=== PATIENT | female | born 1935 | race Two or more races ===

== ENCOUNTER 2018-02-22 15:18 | Inpatient (IN) | payer MEDICARE, MEDICAID ==
[~2018-02-22] VITALS: Ht 154.9 cm; Wt 58.5 kg
[~2018-02-22 15:18] MED LIST: ATOR20TA PO; BENA20TA9 PO; DEXT1CAP3 PO; DOCU-141 PO; METF500T PO; [UNRECOGNIZED DRUG - REMARK] SQ
--- NOTE | 2018-02-22 15:18 | NUR ---
BB PRIVATE EMS FROM [facility] FOR RT KNEE PAIN,RT LEG PAIN, PT WAS FOUND KNEELING DOWN ON HER BEDSIDE. TYLENOL 500MG GIVEN AT 1345. A/OX3. NAD VSS RR EVEN AND UNLABORED. PENDING ER MD SAUCEDA
[2018-02-22 16:31] LABS: BASOPHILS # (AUTO) 0.4 /CMM (0.0-0.2); BASOPHILS % (AUTO) 4.6 % (0.0-2.0); EOSINOPHILS % (AUTO) 0.6 % (0.0-6.0); HEMATOCRIT 34 % (33-45); HEMOGLOBIN 11.8 g/dL (11.5-14.8); LYMPHOCYTES # (AUTO) 2.1 /CMM (0.8-4.8); LYMPHOCYTES % (AUTO) 22.7 % (20.0-44.0); MEAN CORPUSCULAR HEMOGLOBIN 33 PG (26.0-33.0); MEAN CORPUSCULAR HGB CONC 34 g/dl (31.0-36.0); MEAN CORPUSCULAR VOLUME 95 fL (82-100); MONOCYTES # (AUTO) 0.7 /CMM (0.1-1.30); MONOCYTES % (AUTO) 7.7 % (2.0-12.0); NEUTROPHILS # (AUTO) 5.8 /CMM (1.8-8.9); NEUTROPHILS % (AUTO) 64.4 % (43.0-81.0); PLATELET COUNT (AUTO) 211 /CMM (150-450); RDW COEFFICIENT OF VARIATION 13.7 (11.5-15.0); WHITE BLOOD COUNT (AUTO) 9.1 K/uL (4.3-11.0)
[2018-02-22 16:40] LABS: CALCIUM, SERUM 8.5 mg/dL (8.5-10.1); CARBON DIOXIDE 27 mmol/L (21-32); CHLORIDE 104 mmol/L (98-107); CREATININE 1.4 mg/dL (0.6-1.3); GLUCOSE 272 mg/dL (74-106); POTASSIUM 4.9 mmol/L (3.5-5.1); SODIUM SERUM 138 mmol/L (136-145); UREA NITROGEN, BLOOD 39 mg/dL (7-18)
[2018-02-22 16:43] LABS: INR 0.95 (0.85-1.15)
--- NOTE | 2018-02-22 17:57 | NUR ---
CALLED CHARLINE SHAFFER, DIRECTOR BUSINESS INTEGRATION WAS PAGED.
[2018-02-22] MEDS ORDERED: MAG HYDROX/AL HYDROX/SIMETH 30 ML UDC PO PRN (18:30)
[2018-02-22] MEDS ORDERED: ONDANSETRON HCL/PF 4 MG/2 ML VIAL IVP PRN (18:30)
[2018-02-22] MEDS ORDERED: MORPHINE SULFATE INJ 2 MG/ML DISP.SYRIN IV PRN (18:30)
[2018-02-22] MEDS ORDERED: ACETAMINOPHEN 325 MG TABLET PO PRN (18:30)
[2018-02-22] MEDS ORDERED: MAGNESIUM HYDROXIDE 30 ML UDC PO PRN (18:30)
[2018-02-22] MEDS ORDERED: TEMAZEPAM 15 MG CAPSULE PO PRN (18:30)
[2018-02-22] MEDS ORDERED: METF500T6 PO (18:35)
[2018-02-22] MEDS ORDERED: INSU100I26 SQ (18:35)
[2018-02-22] MEDS ORDERED: MEMA14CA PO (18:35)
[2018-02-22] MEDS ORDERED: CRAN425C6 PO (18:35)
[2018-02-22] MEDS ORDERED: INSU100V11 SQ (18:35)
[2018-02-22] MEDS ORDERED: CALC-883 PO (18:35)
[2018-02-22] MEDS ORDERED: DIVA125C5 PO (18:35)
[2018-02-22] MEDS ORDERED: ACET-868 PO (18:35)
[2018-02-22] MEDS ORDERED: FERR325T23 PO (18:35)
[2018-02-22] MEDS ORDERED: DEXTROSE 50%-WATER 50 ML DISP.SYRIN IV PRN (19:00)
--- NOTE | 2018-02-22 21:36 | NUR ---
REPORT GIVEN TO HANDY SINGLETON FOR CONTINUATION OF CARE.
[2018-02-22 22:00] VITALS: BP 144/75
--- NOTE | 2018-02-22 22:10 | NUR ---
PT TRANSFERRED TO VIA [facility]
--- NOTE | 2018-02-22 22:30 | NUR ---
MS RN - ADMISSION NOTES Report received from GIGI Jo RN. Patient received via gurney from ER @2210 for right medial distal femur fracture [facility]. Alert and oriented x1 to self only. [place] language preferred. Rock Splitter present at bedside. Unable to remember what happened. No complaints of pain. Not in any apparent distress. Provider aware transfer to med-surg. Orders received. Skin body assessment done. MRSA Swab done in ER. Bonner in place with slightly cloudy, yellow urine draining. Will attempt to insert IV. Afebrile. Safety measures in place. Bed in lowest position with bed alarm on and call light within reach. Will continue to monitor and assess patient
[2018-02-22] MEDS: BLOOD SUGAR DIAGNOSTIC 1 EACH STRIP IN SCH (23:31)
--- NOTE | 2018-02-23 00:02 | NUR ---
MS RN - IV NOTES IV inserted on left forearm 20g: patent and intact with orders of LR 1000ml @75ml/hr
[2018-02-23] MEDS: IV LR 1000 ML 1,000 ML IV PRN ×2 (00:03→15:25)
--- NOTE | 2018-02-23 06:14 | NUR ---
MS RN CLOSING NOTES Patient remained in bed, intermittently sleeping, easily aroused. No complaints of pain at this moment. Not in any type of distress. IV on left forearm #20g: patent and intact with LR @75ml/hr running, tolerating well. NPO since admission. Bonner cath in place with slightly cloudy/yellow urine draining. 300cc output collected. All needs provided and met. Safety measures in place. Bed in lowest position with bed alarm on and call light within reach. Will endorse to oncoming shift nurse.
[2018-02-23 06:57] LABS: BASOPHILS % (AUTO) 0.6 % (0.0-2.0); EOSINOPHILS % (AUTO) 0.9 % (0.0-6.0); HEMATOCRIT 32 % (33-45); HEMOGLOBIN 11.2 g/dL (11.5-14.8); LYMPHOCYTES # (AUTO) 2.2 /CMM (0.8-4.8); LYMPHOCYTES % (AUTO) 28.5 % (20.0-44.0); MEAN CORPUSCULAR HEMOGLOBIN 33 PG (26.0-33.0); MEAN CORPUSCULAR HGB CONC 35 g/dl (31.0-36.0); MEAN CORPUSCULAR VOLUME 95 fL (82-100); MONOCYTES # (AUTO) 0.8 /CMM (0.1-1.30); MONOCYTES % (AUTO) 9.8 % (2.0-12.0); NEUTROPHILS # (AUTO) 4.7 /CMM (1.8-8.9); NEUTROPHILS % (AUTO) 60.2 % (43.0-81.0); PLATELET COUNT (AUTO) 195 /CMM (150-450); RDW COEFFICIENT OF VARIATION 13.5 (11.5-15.0); RED BLOOD CELL COUNT(AUTO) 3.37 MIL/uL (4.0-5.2); WHITE BLOOD COUNT (AUTO) 7.8 K/uL (4.3-11.0)
--- NOTE | 2018-02-23 07:10 | NUR ---
MS RN NOTES PATIENT IN BED EYES CLOSED, AROUSABLE. RESPOND TO VERBAL AND TACTILE STIMULI. NO ACUTE DISTRESS NOTED, BREATHING UNLABORED. IV ACCESS PATENT AND INTACT, NO REDNESS OR SWELLING NOTED. SAFETY MEASURES IN PLACE. CALL LIGHT WITHIN REACH. WILL CONTINUE TO MONITOR ACCORDINGLY.
[2018-02-23] MEDS ORDERED: PANTOPRAZOLE 40 MG VIAL IV SCH (07:30)
[2018-02-23 08:00] VITALS: BP 133/65
[2018-02-23 08:14] LABS: CALCIUM, SERUM 8.1 mg/dL (8.5-10.1); CARBON DIOXIDE 31 mmol/L (21-32); CHLORIDE 108 mmol/L (98-107); CREATININE 1.1 mg/dL (0.6-1.3); GLUCOSE 83 mg/dL (74-106); MAGNESIUM 1.7 mg/dL (1.8-2.4); PHOSPHORUS 3.8 mg/dL (2.5-4.9); POTASSIUM 4.8 mmol/L (3.5-5.1); SODIUM SERUM 144 mmol/L (136-145); UREA NITROGEN, BLOOD 29 mg/dL (7-18)
[2018-02-23 08:22] LABS: CHOLESTEROL 129 mg/dL (<200); HDL CHOLESTEROL 51 mg/dL (40-60); LDL 65 mg/dL (0-99); THYROID STIMULATING HORMONE 0.993 uIU/mL (0.358-3.74); TRIGLYCERIDES 86 mg/dL (30-150)
[2018-02-23] MEDS: BLOOD SUGAR DIAGNOSTIC 1 EACH STRIP IN SCH ×4 (08:53→21:50)
[2018-02-23] MEDS ORDERED: ENOXAPARIN SODIUM 40 MG/0.4 ML DISP.SYRIN SQ SCH (09:00)
[2018-02-23] MEDS: Magnesium 1GM/D5W 100ML PREMIX 100 ML IV SCH ×2 (09:28→10:33)
[2018-02-23] MEDS ORDERED: MORPHINE SULFATE INJ 4 MG/ML DISP.SYRIN IV PRN (09:57)
[2018-02-23] MEDS: PANTOPRAZOLE 40 MG TABLET.DR PO SCH (09:59)
[2018-02-23] MEDS: ENOXAPARIN SODIUM 30 MG/0.3 ML DISP.SYRIN SQ SCH (11:30)
[2018-02-23] MEDS: LOSARTAN POTASSIUM 50 MG TABLET PO SCH (11:30)
--- NOTE | 2018-02-23 11:31 | NUR ---
MS RN NOTES SEEN AND EVALUATED BY SALINAS PENA (ORTHO), NO SX WILL BE DONE ON RIGHT FEMUR, WITH NEW ORDERS MADE. NOTED AND CARRIED OUT. DISCONTINUED NPO, DIET ORDERED, DUE MEDICATIONS GIVEN.
--- NOTE | 2018-02-23 15:15 | NUR ---
MS RN NOTES SEEN AND EVALUATED BY MIRIAM DICKERSON WITH NEW ORDERS MADE. NOTED AND CARRIED OUT.
[2018-02-23 16:00] VITALS: BP 120/79
[2018-02-23] MEDS: INSULIN REGULAR, HUMAN 100 UNIT/ML 3 ML VIAL SQ PRN ×2 (17:35→21:55)
--- NOTE | 2018-02-23 19:00 | NUR ---
MS RN NOTES PATIENT EYES CLOSED, AROUSABLE, RESPONSIVE TO VERBAL AND TACTILE STIMULI. NO ACUTE DISTRESS NOTED, BREATHING UNLABORED. NO SOB NOTED. IV ACCESS PATENT AND INTACT, NO REDNESS OR SWELLING NOTED. CROWE CATHETER INTACT, DRAINING WELL. RIGHT LEG IMMOBILIZER IN PLACE. NEEDS ATTENDED AND ANTICIPATED. KEPT CLEAN AND DRY AND COMFORTABLE. DUE MEDICATIONS GIVEN, NO ASE NOTED. SAFETY MEASURES IN PLACE. CALL LIGHT WITHIN REACH. ENDORSED TO NIGHT NURSE FOR CONTINUITY OF CARE.
[2018-02-23 19:20] LABS: APPEARANCE,URINE CLOUDY (CLEAR); BILIRUBIN,URINE NEGATIVE (NEGATIVE); BLOOD, URINE TRACE Ery/uL (NEGATIVE); COLOR,URINE YELLOW (YELLOW); KETONES,URINE NEGATIVE (NEGATIVE); LEUKOCYTE ESTERASE ,URINE 2+ (NEGATIVE); NITRITE, URINE POSITIVE (NEGATIVE); PH,URINE 8.5 (5.0-8.0); PROTEIN,URINE TRACE mg/dl (NEGATIVE); UGLUCOSE TRACE mg/dL (NEGATIVE)
[2018-02-23 19:26] LABS: BACTERIA,URINE Many /HPF (None Seen); RBC,URINE 0-2 /HPF (0-2); SQUAMOUS EPITHELIAL CELL,UR Few /HPF (None Seen); WBC,URINE 21-50 /HPF (0-3)
[2018-02-23 20:00] VITALS: BP 104/71
--- NOTE | 2018-02-23 20:12 | NUR ---
MS REINSURANCE ACCOUNTANT INITIAL NOTES SEEN PT IN BED AFTER GOT REPORT FROM AM NURSE SHE'S AWAKE AND ALERT [place] SPEAKING WITH LR INFUSING AT THIS TIME AT 75ML/HR ON HER LEFT FOREARM. BREATHING EVEN AND NON-LABORED , FEBRILE AT THIS TIME WITH TEMP 101. NO SIGNS OF ANY DISCOMFORT NOTED. CROWE TO GRAVITY . KEPT HER WARM AND COMFORTABLE AT ALL TIMES. BED ALARM SET FOR PT SAFETY. ON SEMI FOWLERS POSITION WITH SIDE RAILS X3 UP . WILL CONTINUE MONITORING. PLACE CALL LIGHT AT REACH.
[2018-02-24] VITALS: BP 134/93
[2018-02-24] MEDS: IV LR 1000 ML 1,000 ML IV PRN ×2 (05:05→19:42)
[2018-02-24] MEDS: BLOOD SUGAR DIAGNOSTIC 1 EACH STRIP IN SCH ×4 (06:05→21:38)
[2018-02-24] MEDS: INSULIN REGULAR, HUMAN 100 UNIT/ML 3 ML VIAL SQ PRN ×4 (06:07→21:42)
--- NOTE | 2018-02-24 06:08 | NUR ---
ms rider ticket worker notes blood sugar 141, 2 units of insulin given umm SQ ordered. no signs of hypo /hyper glycemia noted. pt still on ivf of LR at 75 ml/hr. will continue monitoring.
[2018-02-24 06:25] LABS: BASOPHILS % (AUTO) 0.3 % (0.0-2.0); EOSINOPHILS % (AUTO) 1.3 % (0.0-6.0); HEMATOCRIT 32 % (33-45); HEMOGLOBIN 10.6 g/dL (11.5-14.8); LYMPHOCYTES # (AUTO) 1.9 /CMM (0.8-4.8); LYMPHOCYTES % (AUTO) 26.4 % (20.0-44.0); MEAN CORPUSCULAR HEMOGLOBIN 33 PG (26.0-33.0); MEAN CORPUSCULAR HGB CONC 34 g/dl (31.0-36.0); MEAN CORPUSCULAR VOLUME 98 fL (82-100); MONOCYTES # (AUTO) 0.8 /CMM (0.1-1.30); MONOCYTES % (AUTO) 11.3 % (2.0-12.0); NEUTROPHILS # (AUTO) 4.4 /CMM (1.8-8.9); NEUTROPHILS % (AUTO) 60.7 % (43.0-81.0); PLATELET COUNT (AUTO) 210 /CMM (150-450); RDW COEFFICIENT OF VARIATION 14.1 (11.5-15.0); RED BLOOD CELL COUNT(AUTO) 3.23 MIL/uL (4.0-5.2); WHITE BLOOD COUNT (AUTO) 7.2 K/uL (4.3-11.0)
[2018-02-24 06:45] LABS: ALANINE AMINOTRANSFERASE 12 U/L (12-78); ALKALINE PHOSPHATASE 40 U/L (46-116); ASPARTATE AMINOTRANSFERASE 12 U/L (15-37); BILIRUBIN,TOTAL 0.4 mg/dL (0.2-1.0); CALCIUM, SERUM 7.9 mg/dL (8.5-10.1); CARBON DIOXIDE 31 mmol/L (21-32); CHLORIDE 103 mmol/L (98-107); CREATININE 1.1 mg/dL (0.6-1.3); GLUCOSE 148 mg/dL (74-106); MAGNESIUM 1.9 mg/dL (1.8-2.4); PHOSPHORUS 3.2 mg/dL (2.5-4.9); POTASSIUM 4.5 mmol/L (3.5-5.1); SODIUM SERUM 137 mmol/L (136-145); TOTAL PROTEIN, SERUM 5.7 g/dL (6.4-8.2); UREA NITROGEN, BLOOD 24 mg/dL (7-18)
--- NOTE | 2018-02-24 07:10 | NUR ---
MS RN NOTES PATIENT IN BED EYES CLOSED, AROUSABLE. RESPOND TO VERBAL AND TACTILE STIMULI. NO ACUTE DISTRESS NOTED, BREATHING UNLABORED. IV ACCESS PATENT AND INTACT, NO REDNESS OR SWELLING NOTED. CROWE CATHETER INTACT, DRAINING YELLOW URINE. SAFETY MEASURES IN PLACE. CALL LIGHT WITHIN REACH. WILL CONTINUE TO MONITOR ACCORDINGLY.
--- NOTE | 2018-02-24 07:15 | NUR ---
MS TELECINE OPERATOR CLOSING NOTES PT SLEEPING WITHOUT ANY ACUTE DISTRESS NOTED. BREATHING EVEN AND NON-LABORED,. BLOOD SUGAR CHECKED DONE 141, 2 UNITS OF INSULIN GIVEN KATARZYNA SQ ORDERED. MORNING CARE DONE. STABLE KATARZYNA THE NIGHT AND SLEPT WELL,. KEPT HER WARM AND COMFORTABLE AT ALL TIMES. IVF LR AT 75ML.HR INFUSING AT THIS TIME. PLACE CALL LIGHT AT REACH. ENDORSE TO AM NURSE FOR CONTINUITY OF CARE.
[2018-02-24 08:00] VITALS: BP 133/69
[2018-02-24] MEDS: LOSARTAN POTASSIUM 50 MG TABLET PO SCH (09:24)
[2018-02-24] MEDS: PANTOPRAZOLE 40 MG TABLET.DR PO SCH (09:24)
[2018-02-24] MEDS: ENOXAPARIN SODIUM 30 MG/0.3 ML DISP.SYRIN SQ SCH (09:25)
--- NOTE | 2018-02-24 11:20 | NUR ---
MS RN NOTES SEEN AND EVALUATED BY DR KAMLA SHEPARD WITH NEW ORDERS MADE, NOTED AND CARRIED OUT.
[2018-02-24] MEDS: SOD FERRIC GLUC 125 MG in IV NS 0.9% 100 ML IV SCH (14:26)
--- NOTE | 2018-02-24 18:39 | NUR ---
MS RN NOTES PATIENT IN BED ALERT ORIENTED X 1. VERBALLY RESPONSIVE. HOB ELEVATED. NO ACUTE DISTRESS NOTED, BREATHING UNLABORED. DENIED ANY PAIN, NO FACIAL GRIMACING NOTED. IV ACCESS PATENT AND INTACT, NO REDNESS OR SWELLING NOTED. CROWE CATHETER INTACT, DRAINING YELLOW URINE. NEEDS ATTENDED AND ANTICIPATED. DUE MEDICATIONS GIVEN, NO ASE NOTED. SAFETY MEASURES IN PLACE. CALL LIGHT WITHIN REACH. WILL CONTINUE TO MONITOR ACCORDINGLY. WILL ENDORSE TO NIGHT NURSE FOR CONTINUITY OF CARE.
[2018-02-24 20:00] VITALS: BP 115/65
--- NOTE | 2018-02-24 20:00 | NUR ---
MS CHRIS INITIAL NOTES RECEIVED REPORT FROM AM NURSE WHILE CHECKING THE PT AT THE SAME TIME. SHE'S AWAKE AND ALERT WATCHING TV AT THIS TIME. WITH IVF OF LR AT 75ML/HR INFUSING AT THIS TIME ON HER LEFT FOREARM. NO REDNESS NOTED. RE-ORIENTED THE PT HOW TO USED THE CALL LIGHT SYSTEM. CROWE TO GRAVITY WITH CLEAR YELLOW OUTPUT NOTED. NO SIGNS OF ANY ACUTE DISTRESS NOTED. KEPT HER WARM AND COMFORTABLE AT ALL TIMES. PLACE CALL LIGHT AT REACH. BED ALARM SET FOR PT SAFETY. WILL CONTINUE MONITORING.
[2018-02-24 20:17] VITALS: BP 115/65
--- NOTE | 2018-02-24 21:45 | NUR ---
MS PRESCHOOL ADVISER NOTES BLOOD SUGAR CHECKED DONE 257, 6 UNITS OF INSULIN GIVEN KATARZYNA SQ ORDERED. SNACKS ALSO SERVED. NO SIGNS OF HYPER GLYCEMIA NOTED. WILL CONTINUE MONITORING.
[2018-02-25] MEDS: BLOOD SUGAR DIAGNOSTIC 1 EACH STRIP IN SCH ×2 (06:21→12:07)
[2018-02-25] MEDS: INSULIN REGULAR, HUMAN 100 UNIT/ML 3 ML VIAL SQ PRN ×2 (06:25→12:09)
--- NOTE | 2018-02-25 07:00 | NUR ---
GEAR GENERATOR SET UP OPERATOR/CLOSING NOTES ' PATIENT BACK TO SLEEP AFTER MORNING CARE DONE WELL SKIN CARE. SLEPT WELL AND STABLE KATARZYNA THE NIGHT. BLOOD SUGAR CHECKED DONE 157 2 UNITS OF INSULIN GIVEN KATARZYNA SQ ORDERED. NO SIGNS OF HYPO/HYPER GLYCEMIA NOTED. STILL ON IVF LR AT 75ML/HR ORDERED. CROWE DRAINING WELL . KEPT HER WARM AND COMFORTABLE AT ALL TIMES. BED ALAR SET FOR PT SAFETY. PLACE CALL LIGHT AT REACH. WILL CONTINUE MONITORING. ENDORSE TO AM NURSE FOR CONTINUITY OF CARE.
--- NOTE | 2018-02-25 07:05 | NUR ---
MS RN NOTES PATIENT IN BED EYES CLOSED, AROUSALBLE , RESPOND TO VERBAL AND TACTILE STIMULI. NO ACUTE DISTRESS NOTED. BREATHING UNLABORED. CROWE CATHETER INTACT DRAINING YELLOW URINE. RIGHT LEG IMMOBILIZER IN PLACE. NO SOB NOTED. DENIED ANY PAIN. IV ACCESS PATENT AND INTACT, NO REDNESS OR SWELLING NOTED. HOB ELEVATED. SAFETY MEASURES IN PLACE. CALL LIGHT WITHIN REACH. WILL CONTINUE TO MONITOR ACCORDINGLY.
[2018-02-25 07:12] LABS: BASOPHILS % (AUTO) 0.3 % (0.0-2.0); EOSINOPHILS % (AUTO) 1.2 % (0.0-6.0); HEMATOCRIT 31 % (33-45); HEMOGLOBIN 10.4 g/dL (11.5-14.8); LYMPHOCYTES # (AUTO) 1.5 /CMM (0.8-4.8); LYMPHOCYTES % (AUTO) 19.6 % (20.0-44.0); MEAN CORPUSCULAR HEMOGLOBIN 33 PG (26.0-33.0); MEAN CORPUSCULAR HGB CONC 34 g/dl (31.0-36.0); MEAN CORPUSCULAR VOLUME 97 fL (82-100); MONOCYTES # (AUTO) 0.8 /CMM (0.1-1.30); MONOCYTES % (AUTO) 10.7 % (2.0-12.0); NEUTROPHILS # (AUTO) 5.1 /CMM (1.8-8.9); NEUTROPHILS % (AUTO) 68.2 % (43.0-81.0); PLATELET COUNT (AUTO) 227 /CMM (150-450); RDW COEFFICIENT OF VARIATION 14.2 (11.5-15.0); RED BLOOD CELL COUNT(AUTO) 3.17 MIL/uL (4.0-5.2); WHITE BLOOD COUNT (AUTO) 7.6 K/uL (4.3-11.0)
[2018-02-25 07:22] LABS: CARBON DIOXIDE 28 mmol/L (21-32); CHLORIDE 103 mmol/L (98-107); CREATININE 0.9 mg/dL (0.6-1.3); GLUCOSE 167 mg/dL (74-106); POTASSIUM 4.3 mmol/L (3.5-5.1); SODIUM SERUM 137 mmol/L (136-145); UREA NITROGEN, BLOOD 18 mg/dL (7-18)
[2018-02-25 08:00] VITALS: BP 105/61
[2018-02-25] MEDS: PANTOPRAZOLE 40 MG TABLET.DR PO SCH (08:16)
[2018-02-25] MEDS: ENOXAPARIN SODIUM 30 MG/0.3 ML DISP.SYRIN SQ SCH (08:17)
[2018-02-25] MEDS: LOSARTAN POTASSIUM 50 MG TABLET PO SCH (08:17)
[2018-02-25] MEDS: IV LR 1000 ML 1,000 ML IV PRN (09:08)
[2018-02-25] MEDS ORDERED: LOSA50TA3 PO (10:47)
[2018-02-25] MEDS ORDERED: ENOX30DI SQ (10:47)
--- NOTE | 2018-02-25 11:00 | NUR ---
MS RN NOTES SEEN AND EVALUATED BY DR JOSE ARMANDO SHEPARD WITH NEW ORDERS MADE, NOTED AND CARRIED OUT.
[2018-02-25] MEDS: SOD FERRIC GLUC 125 MG in IV NS 0.9% 100 ML IV SCH (13:42)
--- NOTE | 2018-02-25 15:15 | NUR ---
MS MEDICAL RECORDS ASSISTANT NOTES PATIENT DISCHARGED TO [facility] IN STABLE CONDITION VIA AMBULANCE IN A GURNEY ACCOMPANIED BY 2 EMT PERSONNEL. NO ACUTE DISTRESS NOTED. BREATHING UNLABORED. NO SOB NOTED. DENIED ANY PAIN, NO FACIAL GRIMACING NOTED. DUE MEDICATIONS GIVEN, NO ASE NOTED. NEEDS ATTENDED AND ANTICIPATED. IV ACCESS REMOVED, NO BLEEDING, NO REDNESS OR SWELLING NOTED. CROWE CATHETER INTACT AND PATENT, DRAINING YELLOW URINE. CLARIFIED WITH KAMLA POTTER REGARDING CROWE CATHETER IF TO DISCONTINUE, WITH ORDERS TO CONTINUE CROWE CATHETER IN PLACE. RIGHT KNEE IMMOBILIZER IN PLACE WITH GOOD CIRCULATION. DISCHARGE INSTRUCTIONS INCLUDING FOLLOW UP APPOINTMENTS HANDED TO EMT PERSONNEL AND REPORT GIVEN TO CATRACHITO SINGLETON OF [facility]. ALL BELONGINGS ACCOUNTED FOR.
== END 2018-02-25 15:15 | DRG 533 ==
LOC: ER 15:19 → MED 21:05
PROVIDERS: ADMIT Nurse Practitioner Acute Care; ATTEND Nurse Practitioner Acute Care
DX: S72.434A Nondisplaced fracture of medial condyle of right femur, initial encounter for closed fracture (principal); N17.0 Acute kidney failure with tubular necrosis; I69.354 Hemiplegia and hemiparesis following cerebral infarction affecting left non-dominant side; W01.0XXA Fall on same level from slipping, tripping and stumbling without subsequent striking against object, initial encounter; Y93.9 Activity, unspecified; Y92.129 Unspecified place in nursing home as the place of occurrence of the external cause; N18.9 Chronic kidney disease, unspecified; E11.22 Type 2 diabetes mellitus with diabetic chronic kidney disease; I12.9 Hypertensive chronic kidney disease with stage 1 through stage 4 chronic kidney disease, or unspecified chronic kidney disease; E78.5 Hyperlipidemia, unspecified; M19.90 Unspecified osteoarthritis, unspecified site; E11.42 Type 2 diabetes mellitus with diabetic polyneuropathy; R26.9 Unspecified abnormalities of gait and mobility; E11.65 Type 2 diabetes mellitus with hyperglycemia; E11.610 Type 2 diabetes mellitus with diabetic neuropathic arthropathy; K21.9 Gastro-esophageal reflux disease without esophagitis; F03.90 Unspecified dementia, unspecified severity, without behavioral disturbance, psychotic disturbance, mood disturbance, and anxiety; Z79.84 Long term (current) use of oral hypoglycemic drugs
CPT/HCPCS: 36415; 70450-TC; 71045-TC; 73502; 73552; 73564-TC; 73700-TC; 80048-TC; 80053-TC; 80061-TC; 81000-TC; 82306; 82728-TC; 82962-TC; 83540-TC; 83735-TC; 84100-TC; 84439-TC; 84443-TC; 85025-TC; 85730-TC; 87081-TC; 87086-TC; 87186-TC; 93307-TC; A4606; C9113; J1650; J1815; J2916; J3475; J7030; J7120; Z7610